=== PATIENT | male | born 1935 | race Caucasian/White ===

== ENCOUNTER → 2016-12-03 | Day surgery (SDC) | payer MEDICARE, OTHER ==
[2016-12-03] VITALS (11 sets, daily range): BP systolic 112–150; BP diastolic 62–77; PULSE 70–78; RESP 14–20; O2SAT 93–99
[~2016-12-03] VITALS: Ht 180.3 cm; Wt 115.7 kg
[~2016-12-03] MED LIST: ALLO300T2 PO; ASCO-294 PO; Acetaminophen IV 1,000 MG in IV Premix 1 EACH IV ONE; Acetaminophen IV 1,000 MG in IV Premix 1 EACH IV SCH; Atropine 0.4 mg/mL Inj IVPUSH PRN; Belladonna Alk-Opium 60 mg Rectal Suppository RECTAL ONE; CYAN1TAB42 PO; CeFAZolin Inj 2 GM in IV Premix 1 EACH IV SCH; DIPH25CA6 PO; DOCU-41 PO; Dexamethasone 4 mg/mL Inj ONE; EPHEDrine Sulfate 50 mg/mL Inj IVPUSH PRN; FLUT16SP NS; FURO-128 PO; Famotidine 20 mg/50 mL NS Premix IV ONE; Labetalol 5 mg/mL 20 mL Inj IV PRN; Lactated Ringer's 1,000 ML IV ONE; Lactated Ringer's 1,000 ML IV SCH; Lactated Ringer's 500 ML IV PRN; Levofloxacin 500 mg/100 mL D5W IV ONE; METO25TA6 PO; MetoCLOpramide 5 mg/mL 2 mL Inj IVPUSH PRN; Mitomycin Inj 20 MG in Syringe 1 EACH IRRIGATION ONE; OMEP20TA24 PO; Ondansetron 2 mg/mL 2 mL Inj IVPUSH PRN; POTA-62 PO; Phenylephrine 10,000 mCg/mL Inj IVPUSH PRN; Propofol 10 mg/mL 20 mL Inj ONE; ROPI1TAB2 PO; Remifentanil 1 mg/3 mL Inj ONE; Succinylcholine Chloride 20 mg/mL 5 mL Inj ONE; VIT E TP; VIT1TABL83 PO; [UNRECOGNIZED DRUG - OTHER] TP; ecotrin; fentaNYL-PF 50 mCg/mL 2 mL Inj IVPUSH PRN; fentaNYL-PF 50 mCg/mL 2 mL Inj ONE; tylenol
--- NOTE | 2016-12-03 08:52 | PCM.HPANE ---
Patient Data Surgeon Admitting Provider: Attending Provider:Salty Navarro MD Primary Care Physician:Keya Maurice MD Other Provider:[place] Anesthesia Reason for Visit Recurrent Bladder Cancer Ht/WT & BMI Height (Feet): 5 Height (Inches): 11 Weight (Kilograms): 115.66 Body Mass Index 35.00 Allergies Coded Allergies: piperacillin sodium (Verified Allergy, Severe, skin rash, 11/28/16) tazobactam sodium (Verified Allergy, Severe, skin rash, 11/28/16) Penicillins (Verified Allergy, Unknown, 11/28/16) meloxicam (Verified Allergy, Unknown, diarrhea, 11/28/16) lisinopril (Verified Adverse Reaction, Severe, cough, 09/08/14) Past Anesthesia History Anesthesia History: Denies:: Abnormal Airway, Anesthesia Reactions, Difficult Intubation, Fam Anesthesia Reaction, Fam Malignant Hypertherm, Malignant Hyperthermia Diabetes History Hx Diabetes?: No (hx lost 70#) Type of Diabetes: Diet Controlled Glycemic Control: Diet Controlled MRSA MRSA: No Medications Blood Thinner: Aspirin Hypertension Medication: Yes Home Meds Incl Beta Mayra: Yes (metroprolol) Date Beta Mayra Taken: Dec 03, 2016 Time Beta Mayra Taken: 0650 Reported Medications Potassium Chloride ER 20 Meq Tablet.er20 Meq PO DAILY Ref 0 TAKE WITH FOOD 11/28/16 Metoprolol Tartrate 25 Mg Psbwom80 Mg PO DAILY 30 Days Ref 0 11/28/16 [vit e/d beauty oil] No Conflict Check Tp Daily 11/05/16 Ascorbate Calcium (Vitamin C)500 Mg Uwllpa267 Mg PO DAILY 11/05/16 Cyanocobalamin/Folic Acid (Vitamin F76-Muqut Acid Tablet)1 Each Tablet1 Each PO DAILY 11/05/16 Vit B Comp/C/FA/Iron/Vit E (Vitamin B Complex Tablet)1 Each Tablet1 Each PO DAILY 11/05/16 [tylenol] 500mg No Conflict Check2 Tablet HS 11/05/16 Ropinirole (Requip)1 Mg Tablet1-2 Mg PO HS Ref 0 11/05/16 Omeprazole Magnesium (Prilosec Otc)20 Mg Tablet.dr20 Mg PO BID #1 PKG Ref 0 11/05/16 Furosemide (Lasix)40 Mg Mhbxrw24 Mg PO DAILY 30 Days Ref 0 11/05/16 Fluticasone Propionate (Fluticasone Propionate Nasal)16 Gm Taylor.susp1 Taylor NS BID PRN For Congestion #16 GM Ref 0 11/05/16 [ecotrin] No Conflict Cyrnq551 Mg PRN For Pain 11/05/16 Docusate Sodium (Colace)100 Mg Wifchtw704 Mg PO HS PRN For Constipation Ref 0 11/05/16 diphenhydrAMINE HCl (Benadryl)25 Mg Qbqghij79 Mg PO HS PRN Ref 0 11/05/16 Allopurinol 300 Mg Fucevs280 Mg PO DAILY Ref 0 11/05/16 Discontinued Reported Medications Sildenafil Citrate (Sildenafil)20 Mg Vajkmc59-69 Mg PO PRN erectile dysfunction 11/05/16 Sennosides (Senna)8.6 Mg Tablet8.6 Mg PO PRN For Constipation 11/05/16 Metoprolol Tartrate 25 Mg Iumzoz35 Mg PO BID 30 Days Ref 0 11/05/16 Potassium Chloride ER (Klor-Con M20)20 Meq Hyqjfi85 Meq PO sun,tues,thur, sat Ref 0 11/05/16 History History of ENT Problems?: No HEENT History: Positive for:: Hearing Problem Sinus Problem Denies:: Abnormal Airway Difficult Intubation Dysphagia Denture Type: None Teeth Condition: Missing Teeth Hx of Heart Problems?: Yes Cardiovascular History: Positive for:: Abdominal Aortic Aneurism (monitored by cardio- max diameter 4.5cm) Congestive Heart Failure Edema (chronic lower extremity) Hypertension Denies:: AICD Atrial Fibrillation Cardiac Surgery Chest Pain Heart Murmur Irregular Heartbeat Pacemaker Thrombophlebitis Valvular Heart Disease Hx of Respiratory Problem?: Yes Respiratory History: Positive for:: Dyspnea Use of C-PAP Machine Denies:: Asthma COPD Cough Hemoptysis Oxygen Administration Pneumonia Pulmonary Embolism Tuberculosis Hx Neurologic Problems?: Yes Neurological History: Positive for:: Headaches Denies:: CVA Dementia Multiple Sclerosis Parkinson's Disease Seizures Hx of GI Problems?: Yes Hx of Problems?: Yes Genitourinary History: Positive for:: Kidney Stones Urinary Tract Infection Denies:: HX of Hemodialysis HX of Peritoneal Dialysis: No Other Pertinent History: recurrent bladder cancer current admission problem Male Hx: Denies:: Scrotal Mass Testicular Surgery Skin History: Denies:: History Skin Disorders? Pressure Ulcers Hx Musculoskeletal Problems?: No Musculoskeletal History: Positive for:: Back Injury Degenerative Joint Joint Replacement (ilir knees, right total ankle, right total hip) Osteoarthritis Hx of Psycho/Social Problems?: Yes Psycho Social History: Denies:: Anxiety Bipolar Disorder Hx Depression Suicide Attempt Hx Surgeries?: Yes (HIP REPLACEMENT, KNEE X2 REPLACEMENT, GALLBLADDER, CYST REMOVED ) Hx Any Other Health Problems?: Yes Other History: Positive for:: Hospitalization (knee arthroscopies, tendon repair R arm) Denies:: Cancer Thyroid Disease History Blood Transfusions: Denies:: Blood Transfuse Reaction Blood Transfusions Hx Diabetes: No (hx lost 70#) Hx Alcohol Use: YesHx Substance Use: No Smoking Status: Former Smoker Have You Smoked inLast 12 mo: No Stop/Bang P-Blood Pressure: treated: Yes B- Body Mass Index > 35 kg/m2: Yes A- Age over 50: Yes N- Neck Large Circumference: No G- Gender Male: Yes Risk Assessment Category Category 1A: Patient has history of documented sleep apnea, and HAS NOT received any narcotic, sedative or anesthesia administration during this stay. Category 1B: Patient has history of documented sleep apnea, and HAS received any narcotic , sedative or anesthesia administration during this stay Category 2: Patient has SUSPECTED Obstructive Sleep Apnea, and HAS received any narcotic , sedative or anesthesia administration during this stay. Category 3: Patient has SUSPECTED Obstructive Sleep Apnea and HAS NOT received narcotic, sedative or anesthesia administration during this stay. Category 4: Outpatient in Procedural Areas with known sleep apnea or who screen positive for High Risk via the STOP/BANG questionnaire. Exam Exam Vital Signs Vital Signs Date Time Temp Pulse Resp B/P Pulse Ox O2 Delivery O2 Flow Rate FiO2 12/03/16 07:44 36.4 70 20 112/63 93 Room Air General Appearance: Alert, Oriented X3, Cooperative, No Acute Distress HEENT/AIRWAY: MP 2, Neck Movement (large neck circumference), Mouth Opening (3 FBMO) Lungs: Clear to Auscultation, Normal Air Movement Heart: Exam Unremarkable, Regular Rate/Rhythm, No Murmurs/Rubs/Gallops Plan Impression Patient chart reviewed, patient interviewed and anesthestic plan with risks, benefits, and alternatives discussed, and informed consent obtained. NPO per Anesth. Guidelines: Yes ASA Physical Status: ASA3 Severe Disease (BMI 35) Anesthetic Plan: GA Bene/Risks/Altern/Consents: Yes HP Complete Prior to Induction: Yes Jorge Salguero MD Dec 03, 2016 07:54
--- NOTE | 2016-12-03 10:44 | PCM.ANEP1 ---
Post Anesthesia PACU Phase 1 Assessment Vital Signs Vital Signs Date Time Temp Pulse Resp B/P Pulse Ox O2 Delivery O2 Flow Rate FiO2 12/03/16 10:20 71 16 136/70 93 Room Air 12/03/16 10:10 36.8 73 16 129/70 93 Room Air 12/03/16 10:00 74 17 126/76 94 Room Air 12/03/16 09:54 37.0 72 18 124/68 94 Room Air 12/03/16 09:49 78 19 128/65 95 Room Air 12/03/16 09:46 76 18 137/69 98 Simple Mask 8 12/03/16 09:40 77 18 134/65 99 Simple Mask 8 12/03/16 09:37 36.8 78 14 150/77 98 Simple Mask 8 12/03/16 07:44 36.4 70 20 112/63 93 Room Air Anesthetic Administered: GA Level of Alertness: Awake, talking MILLER's with Equal Strength: Yes Pain: No Nausea or Vomiting: No CV Function & Hydration Stable: Yes Airway Device: n/a Oxygen Delivery: Room Air Lungs: Clear to Auscultation, Normal Air Movement Dermatome Level: Full Sensation PACU Phase 2 Assessment Complications: No Follow up Care: N/A Patient Instructions Provided: N/A Jorge Salguero MD Dec 03, 2016 10:44
--- NOTE | 2016-12-06 13:08 | PATH ---
SURGICAL PATHOLOGY Attending Physician:Salty Navarro MD CASE STATUS: Signed Out PATIENT NAME: GIOVANNY WHELAN PID: [id number] : 1935 DATE COLLECTED:12/03/2016 19:52 SPECIMEN: 1: Urethra, Biopsy 2: Ureter, Biopsy CLINICAL HISTORY: RECURRENT BLADDER 1). PROXIMAL BULBAR URETHRA 2). RIGHT URETERIC RIDGE FINAL DIAGNOSIS: 1.PROXIMAL BULBAR URETHRA, BIOPSY: - UROTHELIAL MUCOSA WITH MIXED ACUTE AND CHRONIC INFLAMMATION, ASSOCIATED REACTIVE CHANGES, CYSTITIS CYSTICA AND CYSTITIS GLANDULARIS. - NO EVIDENCE OF HIGH GRADE DYSPLASIA AND MALIGNANCY. - ADDITIONAL DEEPER LEVELS EXAMINED. 2.RIGHT URETERIC RIDGE, BIOPSY: - UROTHELIAL MUCOSA WITH PATCHY CHRONIC INFLAMMATION AND MILD REACTIVE ATYPIA. - NO EVIDENCE OF HIGH GRADE DYSPLASIA AND MALIGNANCY. - ADDITIONAL DEEPER LEVELS EXAMINED. ICD10 N30.20 GROSS DESCRIPTION: The specimen is received in two formalin filled containers labeled with the patient's name. 1). The specimen is labeled "bulbar urethra, proximal" and consists of a 0.2 x 0.2 x 0.1 CM portion of tissue which is entirely submitted in cassette 1A. 2). The specimen is labeled "RT ureteric ridge" and consists of a 0.3 x 0.2 x 0.2 CM portion of tissue which is entirely submitted in cassette 2A. 12/03/2016DC MICRO DESCRIPTION: As part of routine quality control chemist the case was also reviewed by Dr. Villa who agrees with the above interpretation. ICD-9 CODES: CPT CODES: 1: 62481 2: 20409 Electronically Signed Out Efrain Becerra MD [facility] [address], [place] [address] Technical component performed at [facility], [facility] [address], [place], [address]
--- NOTE | 2016-12-09 20:47 | OP ---
[address] [address] OPERATIVE REPORT PATIENT: GIOVANNY WHELAN : 1935 MR#: [id number] ADMIT: 12/03/2016 JOB ID: [id number] DATE OF SURGERY: 12/03/2016 SURGEON: Salty Navarro MD. PREOPERATIVE DIAGNOSIS(ES): 1. History of transitional cell carcinoma of the bladder. 2. Lesion of left posterolateral bladder wall and left most proximal bulbar urethra. POSTOPERATIVE DIAGNOSIS(ES): ANESTHESIOLOGIST: Jorge Salguero MD. ANESTHESIA: General. FINDINGS: Urethra normal except for an approximately 0.5 cm vascular papillary lesion seen emanating from the very most proximal left bulbar urethra at interface with external sphincter. Additionally, a red raised region approximately 1 x 1.5 cm was identified at the left posterolateral wall. Orifices were normal bilaterally with clear efflux of urine. Prostate had evidence of previous TUR with regrowth. PROCEDURE PERFORMED: 1. Cystoscopy with urethral biopsy. 2. Cystoscopy, bladder biopsy, fulguration. 3. Instillation of mitomycin-C. PROCEDURE SUMMARY: Patient was positioned supine and was administered general anesthesia. He was then repositioned in semi-lithotomy and the lower abdomen, genitalia and groin were prepped and draped in sterile fashion. The resectoscope fitted with the cold cup biopsy forceps was then introduced in the lower urinary tract with the findings as described above. The entire urethral lesion was encompassed within the jaws of the biopsy forceps at its base. It was resected cleanly deep to the mucosa on the first attempt and this was labeled appropriately and submitted to Pathology for routine gross and microscopic examination. The scope was then again introduced in the lower urinary tract and advanced more proximally in the bladder. Again, account executive sales representative cold cup samples were obtained from the lesion as described above. Then, using the Bugbee cautery, the area of resection and surrounding area were extensively cautery destroyed for hemostasis and tissue destruction. Hemostasis was excellent. The bladder was drained completely. Twenty cc containing 20 mg mitomycin-C were then instilled in the bladder and the scope was removed in its entirety for anticipated vesical retention for a total of two hours. The patient was then repositioned supine, was awakened, [place] and transported to recovery in stable condition.
== END | disposition home or self-care (01) ==
LOC: SAS 07:13
PROVIDERS: ATTEND Specialist
DX: N30.20 Other chronic cystitis without hematuria (principal); Z85.51 Personal history of malignant neoplasm of bladder; I25.10 Atherosclerotic heart disease of native coronary artery without angina pectoris; I10 Essential (primary) hypertension; E78.5 Hyperlipidemia, unspecified; I71.4 Abdominal aortic aneurysm, without rupture; I25.2 Old myocardial infarction; D64.9 Anemia, unspecified; G47.33 Obstructive sleep apnea (adult) (pediatric); E11.9 Type 2 diabetes mellitus without complications; E03.9 Hypothyroidism, unspecified
CPT/HCPCS: 52235; 88305; J0330; J1100; J2704; J3010; J3490; J7120